=== PATIENT | male | born 1995 ===

== ENCOUNTER 2017-03-22 23:31 | Emergency (ER) | payer SELFPAY ==
[2017-03-22 23:42] VITALS: BP 116/72; PULSE 72; RESP 20; TEMP 98.1; O2SAT 99
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
== END 2017-03-23 00:15 | disposition home or self-care (01) ==
LOC: C.ER 23:31
DX: S80.12XA Contusion of left lower leg, initial encounter (principal); V13.4XXA Pedal cycle driver injured in collision with car, pick-up truck or van in traffic accident, initial encounter; Y93.55 Activity, bike riding; Y92.410 Unspecified street and highway as the place of occurrence of the external cause

== ENCOUNTER 2018-02-21 11:12 | Emergency (ER) | payer MEDICAID ==
[2018-02-21 11:23] VITALS: BP 119/82; PULSE 99; RESP 18; TEMP 98.6; O2SAT 97
--- NOTE | 2018-02-21 12:02 | C.PDOC ---
History Of Present Illness 22 y/o male presents to the ED with complaints of epigastric pain with reflux- like symptoms on and off for the past 6 months. Patient recalls having similar symptoms around 1 year ago, after taking frequent ibuprofen for dental pain. Denies recent weight gain/loss, vomiting, diarrhea, fever, chills, or dysuria. He admits to feeling anxious. Time Seen by Provider: 02/21/18 11:49 Chief Complaint (Nursing): Abdominal Pain History Per: Patient History/Exam Limitations: no limitations Onset/Duration Of Symptoms: Intermittent Episodes Current Symptoms Are (Timing): Still Present Location Of Pain/Discomfort: Epigastric Quality Of Discomfort: Burning Past Medical History Reviewed: Historical Data, Nursing Documentation, Vital Signs Vital Signs: Last Vital Signs Temp 98.6 F 02/21/18 11:21 Pulse 99 H 02/21/18 11:21 Resp 18 02/21/18 11:21 BP 119/82 02/21/18 11:21 Pulse Ox 97 02/21/18 12:02 - Medical History PMH: No Chronic Diseases Surgical History: No Surg Hx Family History: States: Unknown Family Hx - Social History Hx Tobacco Use: No Hx Alcohol Use: Yes Hx Substance Use: Yes - Immunization History Hx Tetanus Toxoid Vaccination: No Hx Influenza Vaccination: No Hx Pneumococcal Vaccination: No Review Of Systems Except As Marked, All Systems Reviewed And Found Negative. Constitutional: Negative for: Fever, Chills, Weight loss Gastrointestinal: Positive for: Nausea, Abdominal Pain. Negative for: Vomiting , Diarrhea, Hematochezia Genitourinary: Negative for: Dysuria, Frequency Musculoskeletal: Negative for: Back Pain Psych: Positive for: Anxiety Physical Exam - Physical Exam Appears: Well, Non-toxic, No Acute Distress Skin: Normal Color, Warm, No Rash Head: Atraumatic, Normacephalic Eye(s): bilateral: Normal Inspection, PERRL, EOMI Oral Mucosa: Moist Neck: Normal ROM, Supple Chest: Symmetrical, No Deformity, No Tenderness Cardiovascular: Rhythm Regular, No Murmur Respiratory: Normal Breath Sounds, No Rales, No Rhonchi, No Wheezing Gastrointestinal/Abdominal: Soft, Tenderness (mild epigastric tenderness, (-) Heard's sign, (-) McBurney's point tenderness), No Guarding, No Rebound Back: Normal Inspection Extremity: Bilateral: Atraumatic, Normal Color And Temperature, Normal ROM Neurological/Psych: Oriented x3, Normal Speech, Normal Cranial Nerves Gait: Steady ED Course And Treatment O2 Sat by Pulse Oximetry: 97 (RA) Pulse Ox Interpretation: Normal Medical Decision Making Medical Decision Making: Impression: Nausea, epigastric burning describes prior episodes of GERD similar years ago taking NSAIDS for dental Plan: Treated with 30ml PO Maalox Plus and 20mg PO Pepcid in the ED On re-eval, patient reports improvement and is stable for d/c. Provided prescriptions and counseled pt regarding follow up instructions. Disposition Doctor Will See Patient In The: Office Counseled Patient/Family Regarding: Diagnosis, Need For Followup, Rx Given - Disposition Referrals: [facility] [Outside] [facility] [Outside] [facility] [Outside] Disposition: HOME/ ROUTINE Disposition Time: 12:01 Condition: GOOD Additional Instructions: Pepcid 20 mg twice a day (9AM and 9PM) to lower stomach acid, take for 1 month, then just @ PM for 2 more months Maalox 30 cc's (one tablespoon) 5x/day for the next 3 days, then as needed for GERD symptoms Observe a GERD diet and precautions Follow-up in our outpatient [facility] for further eval as needed in 2-3 months Instructions: Acid Reflux (Gastroesophageal Reflux Disease), Adult (DC) Forms: [facility] (Pashto), Work Excuse - POA Present On Arrival: None - Clinical Impression Clinical Impression: Epigastric burning sensation - Scribe Statement The provider has reviewed the documentation as recorded by the Scribe (Nohemy Castellanos) Provider Attestation: All medical record entries made by the Scribe were at my direction and personally dictated by me. I have reviewed the chart and agree that the record accurately reflects my personal performance of the history, physical exam, medical decision making, and the department course for this patient. I have also personally directed, reviewed, and agree with the discharge instructions and disposition.
[2018-02-21] MEDS ORDERED: Alum-Mag Hydrox-Simethicone Susp (30 mL) ONE (12:10)
[2018-02-21] MEDS: Alum-Mag Hydrox-Simethicone Susp (30 mL) PO STA (12:11)
== END 2018-02-21 12:20 | disposition home or self-care (01) ==
LOC: C.ER 11:12
DX: R10.13 Epigastric pain (principal)